=== PATIENT | female | born 2000 | race Two or more races ===

== ENCOUNTER 2022-08-02 20:22 | Emergency (ER) | payer OTHER ==
[~2022-08-02] VITALS: Ht 157.5 cm; Wt 48.1 kg
[2022-08-02] MEDS ORDERED: BENTYL10 MG/1 ML PO (20:55)
[2022-08-02] MEDS ORDERED: SYMAX0.125 MG PO (20:56)
[2022-08-03] MEDS ORDERED: PYRIDIUM DS200 MG PO (04:00)
[2022-08-03] MEDS ORDERED: BACTRIM DS TAB1 EACH PO (04:00)
== END 2022-08-03 04:09 ==
LOC: ER 20:22
DX: N39.0 Urinary tract infection, site not specified (principal)